=== PATIENT | female | born 1940 | race Caucasian/White ===

== ENCOUNTER → 2020-03-03 | Outpatient (CLI) | payer MEDICARE ==
--- NOTE | 2020-03-03 15:18 | Diagnostic Imaging Report ---
MRI BRAIN WO HISTORY: Memory loss COMPARISON: None. TECHNIQUE: Sagittal T2, axial T2, multiplanar 3-D T1, axial T2/FLAIR, axial gradient echo (or susceptibility weighted), and axial diffusion weighted MR images of the brain were obtained without contrast. DISCUSSION: Scalp/bone marrow: Unremarkable. Brain sulci: Prominent. Ventricles: Compensatory dilatation. Extra-axial spaces: No masses or fluid collections. Parenchyma: Scattered T2/FLAIR hyperintense foci throughout the supratentorial white matter are likely chronic microvascular ischemic changes. Otherwise, no mass, hemorrhage, or acute vascular insults. Vessels: Normal flow voids in major arteries and veins. Sellar/Suprasellar region: No abnormalities. Craniocervical junction: No abnormalities. Incidental findings: There are prominent degenerative changes in the right temporomandibular joint. IMPRESSION: 1. No acute intracranial abnormalities. 2. Mild supratentorial chronic microvascular ischemic change. 3. Mild generalized cerebral volume loss. Signed by: Dr. Wade Cardona M.D. on 03/03/2020 3:15 PM
== END ==
LOC: MRI 13:30
PROVIDERS: ATTEND Psychiatry & Neurology Neurology
DX: R41.3 Other amnesia (principal)
CPT/HCPCS: 70551

== ENCOUNTER 2020-07-21 11:45 | Emergency (ER) | payer MEDICARE ==
[~2020-07-21] VITALS: Ht 160 cm; Wt 63.0 kg
[2020-07-21] MEDS ORDERED: LISINOPRIL10 MG PO (11:56)
[2020-07-21] MEDS ORDERED: LIALDA1.2 GM PO (11:56)
[2020-07-21] MEDS ORDERED: DONEPEZIL HCL5 MG PO (11:56)
[2020-07-21] MEDS ORDERED: LEVOTHYROXINE75 MCG PO (11:56)
[2020-07-21] MEDS ORDERED: KLOR-CON 1010 MEQ PO (11:56)
[2020-07-21] MEDS ORDERED: NEXIUM40 MG PO (11:56)
[2020-07-21] MEDS ORDERED: QUETIAPINE FUM100 MG PO (11:56)
[2020-07-21] MEDS ORDERED: ONDANSETRON HCL INJ 2MG/ML 2ML 2 MG/ML VIAL IV STA (11:57)
[2020-07-21] MEDS ORDERED: MORPHINE SULFATE INJ 4 MG/ML INJ 1ML IV STA (11:57)
[2020-07-21] MEDS ORDERED: SODIUM CHLORIDE 0.9% 1000ML 1,000 ML IV STA (11:57)
[2020-07-21] MEDS ORDERED: DIATRIZOATE MEGL/DIATRIZOA SOD 30 ML BTL PO ONE (12:11)
[2020-07-21] MEDS ORDERED: ACETAMINOPHEN 325 MG TAB PO STA (12:18)
[2020-07-21 12:31] LABS: BASOPHILS # (AUTO) 0.1 (0.0-0.1); BASOPHILS % 0.4 % (0.0-1.0); EOSINOPHILS % 0.1 % (0.0-6.0); HEMATOCRIT 33.8 % (34.2-44.1); HEMOGLOBIN 10.9 g/dL (12.0-16.0); LYMPHOCYTES % 6.7 % (18.0-39.1); MEAN CORPUSCULAR HGB CONC 32.2 g/dL (31-35); MEAN CORPUSCULAR VOLUME 89.9 fL (81-99); MONOCYTES # (AUTO) 1.7 (0.2-0.8); MONOCYTES % 11.6 % (4.4-11.3); NEUTROPHILS # (AUTO) 11.8 (2.1-6.9); NEUTROPHILS % 80.6 % (38.7-80.0); PLATELET COUNT 224 x10e3/uL (140-360); RED BLOOD COUNT 3.76 x10e6/uL (3.6-5.1); RED CELL DISTRIBUTION WIDTH 12.7 % (11.7-14.4)
[2020-07-21 12:53] LABS: ALBUMIN 3.4 g/dL (3.5-5.0); ALBUMIN/GLOBULIN RATIO 0.9 (0.8-2.0); ANION GAP 16.8 mmol/L (8-16); CALCIUM 8.3 mg/dL (8.4-10.2); CREATININE, SERUM 1.04 mg/dL (0.57-1.11)
[2020-07-21 12:55] LABS: POTASSIUM 2.8 mmol/L (3.5-5.1)
[2020-07-21] MEDS ORDERED: POTASSIUM CHLORIDE 10MEQ EA PO STA (12:56)
[2020-07-21] MEDS ORDERED: POTASSIUM CHLORIDE 20MEQ/100ML 100 ML IV ONE (13:00)
[2020-07-21] MEDS ORDERED: SODIUM CHLORIDE 0.9% 50ML 50 ML ONE (13:28)
[2020-07-21] MEDS ORDERED: IOPAMIDOL 370 MG/ML 200 ML INFUS..BTL INJ ONE (13:28)
[2020-07-21 15:11] LABS: CLARITY,URINE CLEAR (CLEAR); COLOR,URINE YELLOW (YELLOW); KETONES,URINE NEGATIVE (NEGATIVE); LEUKOCYTE ESTERASE ,URINE NEGATIVE (NEGATIVE); NITRITE,URINE NEGATIVE (NEGATIVE); PROTEIN,URINE DIPSTICK NEGATIVE (NEGATIVE); URINE UROBILINOGEN 0.2 mg/dL (0.2 - 1)
[2020-07-21 15:21] LABS: EPITHELIAL CELLS,URINE RARE /LPF; RBC,URINE 0-5 /HPF (0-5); WBC,URINE (MAN) 0-5 /HPF (0-5)
== END 2020-07-21 16:16 | disposition home or self-care (01) ==
LOC: ER 12:00
DX: R10.31 Right lower quadrant pain (principal); K52.9 Noninfective gastroenteritis and colitis, unspecified; E87.6 Hypokalemia; I10 Essential (primary) hypertension; J45.909 Unspecified asthma, uncomplicated; E03.9 Hypothyroidism, unspecified; K21.9 Gastro-esophageal reflux disease without esophagitis
CPT/HCPCS: 36415; 74177; 80053; 81001; 83690; 85025; 99284; J2270; J2405; J3480; J7030; Q9967

== ENCOUNTER → 2020-08-10 | Outpatient (CLI) | payer MEDICARE, OTHER ==
[~2020-08-10] MED LIST: COVID-19 VACC, MRNA(MODERNA)/PF 100 MCG/0.5 ML VIAL IM ONE; DONEPEZIL HCL5 MG PO; KLOR-CON 1010 MEQ PO; LEVOTHYROXINE75 MCG PO; LIALDA1.2 GM PO; LISINOPRIL10 MG PO; NEXIUM40 MG PO; QUETIAPINE FUM100 MG PO
== END | disposition home or self-care (01) ==
LOC: VACCPMC 15:11
DX: Z23 Encounter for immunization (principal); Z20.822 Contact with and (suspected) exposure to COVID-19
CPT/HCPCS: 91301

== ENCOUNTER → 2020-09-06 | Outpatient (CLI) | payer MEDICARE, OTHER | END | disposition home or self-care (01) | LOC: VACCPMC 12:37 | DX: Z23 Encounter for immunization (principal); Z20.822 Contact with and (suspected) exposure to COVID-19 | CPT/HCPCS: 91301 ==

== ENCOUNTER 2020-11-22 08:54 | Observation (INO) | payer MEDICARE ==
[2020-11-14 14:56] LABS: BASOPHILS # (AUTO) 0.1 (0.0-0.1); BASOPHILS % 0.9 % (0.0-1.0); EOSINOPHILS # (AUTO) 0.4 (0.0-0.4); EOSINOPHILS % 4.3 % (0.0-6.0); HEMOGLOBIN 12.3 g/dL (12.0-16.0); LYMPHOCYTES % 22.1 % (18.0-39.1); MEAN CORPUSCULAR HEMOGLOBIN 29.8 pg (28-32); MEAN CORPUSCULAR HGB CONC 32.4 g/dL (31-35); MONOCYTES # (AUTO) 0.7 (0.2-0.8); MONOCYTES % 7.3 % (4.4-11.3); NEUTROPHILS # (AUTO) 5.9 (2.1-6.9); NEUTROPHILS % 64.7 % (38.7-80.0); PLATELET COUNT 236 x10e3/uL (140-360); RED BLOOD COUNT 4.13 x10e6/uL (3.6-5.1); RED CELL DISTRIBUTION WIDTH 13.2 % (11.7-14.4)
[2020-11-14 15:11] LABS: ANION GAP 12.3 mmol/L (8-16); CALCIUM 9.2 mg/dL (8.4-10.2); CREATININE, SERUM 0.82 mg/dL (0.57-1.11); POTASSIUM 4.3 mmol/L (3.5-5.1)
[~2020-11-22] VITALS: Ht 160 cm; Wt 66.3 kg
[~2020-11-22 08:54] MED LIST changes: -COVID-19 VACC, MRNA(MODERNA)/PF 100 MCG/0.5 ML VIAL IM ONE; +FUROSEMIDE40 MG PO; +OSTEO BI-FLEX1 EAC2 PO; +ROPIVACAINE 246.25 MG, EPINEPHRINE HCL 1:1000 1ML 0.5 MG, CLONIDINE HCL 0.08 MG, KETORO... INJ ONE; +VENTOLIN HFA18 GM INH
[2020-11-22] MEDS ORDERED: CELECOXIB 200 MG CAP ONE (09:54)
[2020-11-22] MEDS ORDERED: DEXAMETHASONE SOD PHOS 10 MG/1 ML VIAL ONE (09:54)
[2020-11-22] MEDS ORDERED: SODIUM CHLORIDE 0.9% 50ML 100 ML ONE (09:55)
[2020-11-22] MEDS ORDERED: GABAPENTIN 300 MG CAP ONE (09:55)
[2020-11-22] MEDS ORDERED: SODIUM CHLORIDE 0.9% 500ML 500 ML ONE (10:18)
[2020-11-22] MEDS ORDERED: TRANEXAMIC ACID 1,000 MG/10 ML ML ONE ×2 (10:18→10:19)
[2020-11-22] MEDS ORDERED: Vancomycin IV 500 MG ONE ×2 (10:18→10:38)
[2020-11-22] MEDS ORDERED: BUPIVACAINE HCL 0.5% INJ 30 ML VIAL INJ ONE (10:50)
[2020-11-22] MEDS ORDERED: DIPHENHYDRAMINE HCL INJ 50 MG/ML VIAL IV PRN (12:15)
[2020-11-22] MEDS ORDERED: DOCUSATE SODIUM 100 MG CAP PO PRN (12:15)
[2020-11-22] MEDS ORDERED: ONDANSETRON HCL INJ 2MG/ML 2ML 2 MG/ML VIAL IV PRN (12:15)
[2020-11-22] MEDS ORDERED: ACETAMINOPHEN 650 MG SUPP PR PRN (12:15)
[2020-11-22 13:19] VITALS: BP 129/69
[2020-11-22] MEDS ORDERED: MIDAZOLAM HCL 2 MG/2 ML VIAL ONE (13:53)
[2020-11-22] MEDS ORDERED: FENTANYL CITRATE/PF 100MCG/2 ML INJ ONE (13:53)
[2020-11-22 13:58] VITALS: BP 129/69
[2020-11-22] MEDS ORDERED: ACETAMINOPHEN 1000 MG/100 ML IV PRN (14:00)
[2020-11-22 14:05] VITALS: BP 129/69
[2020-11-22] MEDS: SODIUM CHLORIDE 0.9% 1000ML 1,000 ML IV SCH ×2 (15:00→22:15)
[2020-11-22 15:07] VITALS: BP 127/50
[2020-11-22] MEDS ORDERED: ONDANSETRON HCL INJ 2MG/ML 2ML 2 MG/ML VIAL ONE (16:29)
[2020-11-22] MEDS ORDERED: POVIDONE IODINE 0.05% 0.05 % ML PO ONE (16:29)
[2020-11-22] MEDS ORDERED: EYE LUBRICANT OPTH OINT 3.5GM TUBE OP ONE (16:29)
[2020-11-22] MEDS ORDERED: LIDOCAINE HCL 2% LOCAL INJ 5 ML SDV VIAL INJ ONE (16:29)
[2020-11-22] MEDS ORDERED: PROPOFOL IV EMULSION 10 MG/ML 20 ML VIAL ONE (16:29)
[2020-11-22] MEDS ORDERED: SEVOFLURANE INHAL SOLN 250 ML PEN BTL ONE (16:29)
[2020-11-22] MEDS ORDERED: LIDOCAINE HCL 2% JELLY 5 ML TUBE ONE (16:29)
[2020-11-22] MEDS: ASPIRIN 325 MG TAB PO SCH (17:16)
[2020-11-22] MEDS: CELECOXIB 100 MG CAP PO SCH (17:16)
[2020-11-22] MEDS: Cefazolin 1 GM in SODIUM CHLORIDE 0.9% 50ML 50 ML IV SCH (17:17)
[2020-11-22] MEDS: KETOROLAC TROMETHAMINE 30 MG/ML VIAL IV PRN (17:29)
[2020-11-22 20:00] VITALS: BP 129/53
[2020-11-22] MEDS ORDERED: ZOLPIDEM TARTRATE 5 MG TAB PO PRN (21:00)
[2020-11-22 21:31] VITALS: BP 129/53
[2020-11-22] MEDS: HYDROCODONE/APAP 5MG-325MG TAB PO PRN (21:38)
[2020-11-23] VITALS: BP 140/47
[2020-11-23] MEDS: KETOROLAC TROMETHAMINE 30 MG/ML VIAL IV PRN ×2 (00:41→10:21)
[2020-11-23] MEDS: HYDROCODONE/APAP 7.5MG-325MG 1 EA TAB PO PRN ×2 (01:49→06:28)
[2020-11-23] MEDS: Cefazolin 1 GM in SODIUM CHLORIDE 0.9% 50ML 50 ML IV SCH ×2 (01:52→09:31)
[2020-11-23 05:41] LABS: HEMATOCRIT 29.4 % (34.2-44.1); HEMOGLOBIN 9.7 g/dL (12.0-16.0)
[2020-11-23] MEDS ORDERED: LEVOTHYROXINE SODIUM 75 MCG TAB PO SCH (07:30)
[2020-11-23] MEDS: SODIUM CHLORIDE 0.9% 1000ML 1,000 ML IV SCH (08:15)
[2020-11-23 08:37] VITALS: BP 147/58
[2020-11-23] MEDS: ASPIRIN 325 MG TAB PO SCH (08:53)
[2020-11-23] MEDS: CELECOXIB 100 MG CAP PO SCH (08:53)
[2020-11-23 08:56] VITALS: BP 147/58
[2020-11-23] MEDS ORDERED: MESALAMINE 400 MG CAP PO SCH (09:00)
[2020-11-23] MEDS ORDERED: DONEPEZIL HCL 5 MG TAB PO SCH (09:00)
[2020-11-23] MEDS ORDERED: LISINOPRIL 10 MG TAB PO SCH (09:00)
[2020-11-23] MEDS ORDERED: QUETIAPINE FUMARATE 100 MG TAB PO SCH (09:00)
[2020-11-23] MEDS ORDERED: ONDANSETRON HCL 4 MG ORAL DISINTEGRATING TAB PO PRN (12:15)
[2020-11-23] MEDS: HYDROCODONE/APAP 5MG-325MG TAB PO PRN (12:42)
[2020-11-23] MEDS ORDERED: CELECOXIB 200 MG CAP PO SCH (17:00)
== END 2020-11-23 13:05 | disposition home or self-care (01) ==
LOC: OR 08:54 → PACU V 12:33 → MED/SURG 13:25
PROVIDERS: ADMIT Specialist; ATTEND Specialist
DX: M16.11 Unilateral primary osteoarthritis, right hip (principal); E03.9 Hypothyroidism, unspecified; I10 Essential (primary) hypertension; E78.00 Pure hypercholesterolemia, unspecified; Z87.11 Personal history of peptic ulcer disease; Z01.818 Encounter for other preprocedural examination
CPT/HCPCS: 27130; 36415 ×2; 71046; 72170; 80048; 85014; 85018; 85025; 86850; 86900; 86920; 97110; 97116; 97161; 97530; C1713 ×3; C1776 ×3; G0378 ×2; J0171; J0690 ×2; J1100; J1885 ×2; J2001 ×2; J2250; J2405; J2704; J2795; J3010; J3370; J7040

== ENCOUNTER 2022-02-20 06:05 | Observation (INO) | payer MEDICARE ==
[~2022-02-20] VITALS: Ht 160 cm; Wt 69.4 kg
[~2022-02-20 06:05] MED LIST changes: +HAIR, SKIN & N1 EACH PO; +MULTI-VITAMIN1 EACH PO; -ROPIVACAINE 246.25 MG, EPINEPHRINE HCL 1:1000 1ML 0.5 MG, CLONIDINE HCL 0.08 MG, KETORO... INJ ONE; +ULTRAM50 MG PO
[2022-02-20] MEDS ORDERED: DEXAMETHASONE SOD PHOS 10 MG/1 ML VIAL ONE (06:47)
[2022-02-20] MEDS ORDERED: GABAPENTIN 300 MG CAP ONE (06:47)
[2022-02-20] MEDS ORDERED: CELECOXIB 200 MG CAP ONE (06:47)
[2022-02-20] MEDS ORDERED: Vancomycin IV 1,000 MG ONE (07:27)
[2022-02-20] MEDS ORDERED: SODIUM CHLORIDE 0.9% 500ML 500 ML ONE (07:28)
[2022-02-20] MEDS ORDERED: TRANEXAMIC ACID 20 ML ONE (07:28)
[2022-02-20] MEDS ORDERED: ROPIVACAINE 246.25 MG, EPINEPHRINE HCL 1:1000 1ML 0.5 MG, CLONIDINE HCL 0.08 MG, KETORO... INJ ONE ×5 (08:00)
[2022-02-20] MEDS ORDERED: METHOCARBAMOL 100MG/1ML 10ML VIAL IV ONE (08:11)
[2022-02-20] MEDS ORDERED: ONDANSETRON HCL INJ 2MG/ML 2ML 2 MG/ML VIAL IV PRN (10:15)
[2022-02-20] MEDS ORDERED: HYDROCODONE/APAP 5MG-325MG TAB PO PRN (10:15)
[2022-02-20] MEDS ORDERED: DOCUSATE SODIUM 100 MG CAP PO PRN (10:15)
[2022-02-20] MEDS ORDERED: ACETAMINOPHEN 650 MG SUPP PR PRN (10:15)
[2022-02-20] MEDS ORDERED: DIPHENHYDRAMINE HCL INJ 50 MG/ML VIAL IV PRN (10:15)
[2022-02-20] MEDS ORDERED: HYDROCODONE/APAP 7.5MG-325MG 1 EA TAB PO PRN (10:15)
[2022-02-20] MEDS ORDERED: Morphine 4mg INJECTION 4 MG/ML INJ ONE (10:37)
[2022-02-20] MEDS ORDERED: MEPERIDINE HCL INJ 25 MG/ML VIAL ONE (10:46)
[2022-02-20] MEDS ORDERED: HYDROMORPHONE 1MG/1ML INJ ONE (12:21)
[2022-02-20] MEDS ORDERED: HYDROCODON-ACE1 EA12 PO (12:26)
[2022-02-20] MEDS ORDERED: ROPIVACAINE 0.5% 5 MG/ML 30 ML SDV ONE (13:50)
[2022-02-20] MEDS ORDERED: MIDAZOLAM HCL 2 MG/2 ML VIAL ONE (14:14)
[2022-02-20] MEDS ORDERED: FENTANYL CITRATE/PF 100MCG/2 ML INJ ONE (14:14)
[2022-02-20 14:46] VITALS: BP 147/54
[2022-02-20 14:56] VITALS: BP 147/54
[2022-02-20 15:05] VITALS: BP 147/54
[2022-02-20] MEDS ORDERED: SODIUM CHLORIDE 0.9% 1000ML 1,000 ML IV SCH (16:15)
[2022-02-20] MEDS ORDERED: CELECOXIB 100 MG CAP PO SCH (17:00)
[2022-02-20] MEDS ORDERED: ASPIRIN 325 MG TAB PO SCH (19:00)
[2022-02-20] MEDS ORDERED: ZOLPIDEM TARTRATE 5 MG TAB PO PRN (21:00)
[2022-02-21] MEDS ORDERED: ACETAMINOPHEN 1000 MG/100 ML IV PRN (10:15)
== END 2022-02-20 20:30 | disposition home health service (06) ==
LOC: OR 06:05 → PACU V 10:11 → MED/SURG3 14:35
PROVIDERS: ADMIT Specialist; ATTEND Specialist
DX: M17.12 Unilateral primary osteoarthritis, left knee (principal); K29.70 Gastritis, unspecified, without bleeding; E03.9 Hypothyroidism, unspecified; K58.9 Irritable bowel syndrome, unspecified; K21.9 Gastro-esophageal reflux disease without esophagitis; I10 Essential (primary) hypertension; Z85.89 Personal history of malignant neoplasm of other organs and systems; Z96.641 Presence of right artificial hip joint; Z96.651 Presence of right artificial knee joint; Z88.0 Allergy status to penicillin; Z87.440 Personal history of urinary (tract) infections; Z01.818 Encounter for other preprocedural examination; Z87.898 Personal history of other specified conditions; Z83.3 Family history of diabetes mellitus; Z82.49 Family history of ischemic heart disease and other diseases of the circulatory system; Z84.89 Family history of other specified conditions
CPT/HCPCS: 27447; 71046; 73560; 86850; 86900; 86920; 97110; 97116 ×2; 97161; C1713 ×3; C1776 ×3; G0378; J0171; J0690; J1100; J1170; J1885; J2175; J2250; J2270; J2405; J2795; J2800; J3010; J3370; J7030; J7040